=== PATIENT | female | born 1980 | race African-American/Black ===

== ENCOUNTER 2022-10-14 19:02 | Emergency (ER) | payer MEDICAID ==
[~2022-10-14] VITALS: Ht 165.1 cm; Wt 64.1 kg
[2022-10-14] MEDS ORDERED: L-GLUTAMINE PO (19:14)
[2022-10-14] MEDS ORDERED: FOLI-130 PO (19:15)
[2022-10-14 20:47] LABS: BASOPHILS % (AUTO) 0.9 % (0.0-2.0); EOSINOPHILS % (AUTO) 0.4 % (1.0-6.0); HEMATOCRIT 28.8 % (36-46); HEMOGLOBIN 9.8 g/dL (12.0-16.0); LYMPHOCYTES # (AUTO) 1.6 K/uL (1.0-4.8); LYMPHOCYTES % (AUTO) 48.5 % (22.0-44.0); MEAN CORPUSCULAR HEMOGLOBIN 33.7 pg (26.0-34.0); MEAN CORPUSCULAR HGB CONC 33.9 G/dL (31.0-37.0); MEAN CORPUSCULAR VOLUME 100 fL (80-100); MONOCYTES # (AUTO) 0.2 K/uL (0.1-1.0); MONOCYTES % (AUTO) 6.9 % (2.0-9.0); NEUTROPHILS # (AUTO) 1.5 K/uL (1.8-7.7); NEUTROPHILS % (AUTO) 43.3 % (40.0-70.0)
[2022-10-14 20:53] LABS: ANION GAP 16 mmol/L (8-16); CALCIUM, TOTAL 8.3 mg/dL (8.8-10.5); CARBON DIOXIDE 23 mmol/L (22-29); CHLORIDE 102 mmol/L (98-107); CREATININE 0.69 mg/dL (0.60-1.30); GLOMERULAR FILTR. RATE CALC > 60 mL/min (>60); GLUCOSE,RANDOM 111 mg/dL (70-110); POTASSIUM 3.2 mmol/L (3.5-5.1); SODIUM SERUM 141 mmol/L (136-145); UREA NITROGEN, BLOOD 10 mg/dL (7-18)
[2022-10-14 20:59] LABS: ALANINE AMINOTRANSFERASE 53 U/L (12-78); ALBUMIN 3.5 g/dL (3.4-5.0); ALKALINE PHOSPHATASE 173 U/L (46-116); ASPARTATE AMINOTRANSFERASE 273 U/L (15-37); BILIRUBIN,TOTAL 1.5 mg/dL (0.1-1.0); TOTAL PROTEIN, SERUM 8.1 g/dL (6.4-8.2)
[2022-10-14 21:12] LABS: PLATELET COUNT (AUTO) 95 K/uL (150-450)
[2022-10-14 21:49] LABS: COVID AG,FIA SOURCE NASAL SWAB
[2022-10-15 14:08] VITALS: BP 126/81
== END 2022-10-15 14:35 | disposition home or self-care (01) ==
LOC: EMS 19:06
DX: F69 Unspecified disorder of adult personality and behavior (principal); F10.10 Alcohol abuse, uncomplicated; R45.850 Homicidal ideations; R07.89 Other chest pain; F10.129 Alcohol abuse with intoxication, unspecified; K70.30 Alcoholic cirrhosis of liver without ascites; Z98.890 Other specified postprocedural states; Z20.822 Contact with and (suspected) exposure to COVID-19; Y90.9 Presence of alcohol in blood, level not specified
CPT/HCPCS: 99285; 87426; 80053; 84484; 84703; 85025; 36415; 93005; G0480

== ENCOUNTER 2024-09-03 15:08 | Inpatient (IN) | payer MEDICAID ==
[~2024-09-03] VITALS: Ht 165.1 cm; Wt 72.7 kg
[~2024-09-03 15:08] MED LIST: CEFI400C4 PO; FOLI-130 PO; L-GLUTAMINE PO; LACT10SO10 PO
[2024-09-03] MEDS ORDERED: SODIUM CHLORIDE 0.9% 100 ML ONE (16:47)
[2024-09-03] MEDS ORDERED: 0.9% SODIUM CHLORIDE 10 ML SYRINGE IVP ONE (16:47)
[2024-09-03] MEDS ORDERED: IOHEXOL 350 MG/ML 100 ML VIAL ONE (16:47)
[2024-09-03 16:50] LABS: ANION GAP 12 mmol/L (8-16); CALCIUM, TOTAL 7.7 mg/dL (8.8-10.5); CARBON DIOXIDE 25 mmol/L (22-29); CHLORIDE 106 mmol/L (98-107); CREATININE 0.71 mg/dL (0.60-1.30); GLOMERULAR FILTR. RATE CALC > 60 mL/min (>60); GLUCOSE,RANDOM 109 mg/dL (70-110); POTASSIUM 3.8 mmol/L (3.5-5.1); SODIUM SERUM 143 mmol/L (136-145); UREA NITROGEN, BLOOD 13 mg/dL (7-18)
[2024-09-03 16:55] LABS: ALANINE AMINOTRANSFERASE 27 U/L (12-78); ALBUMIN 2.2 g/dL (3.4-5.0); ALKALINE PHOSPHATASE 174 U/L (46-116); ASPARTATE AMINOTRANSFERASE 155 U/L (15-37); BILIRUBIN,TOTAL 1.5 mg/dL (0.1-1.0); LIPASE 187 U/L (16-77); TOTAL PROTEIN, SERUM 8.2 g/dL (6.4-8.2)
[2024-09-03 17:00] LABS: EOSINOPHILS % (AUTO) 1.5 % (1.0-6.0); HEMATOCRIT 24.7 % (36-46); LYMPHOCYTES # (AUTO) 0.9 K/uL (1.0-4.8); LYMPHOCYTES % (AUTO) 31.2 % (22.0-44.0); MEAN CORPUSCULAR HGB CONC 32.5 G/dL (31.0-37.0); MEAN CORPUSCULAR VOLUME 92 fL (80-100); MONOCYTES # (AUTO) 0.3 K/uL (0.1-1.0); MONOCYTES % (AUTO) 12.7 % (2.0-9.0); NEUTROPHILS # (AUTO) 1.4 K/uL (1.8-7.7); NEUTROPHILS % (AUTO) 52.6 % (40.0-70.0); RED BLOOD CELL COUNT(AUTO) 2.68 MIL/uL (4.00-5.20); RED CELL DISTRIBUTION WIDTH 19.3 % (11.5-14.5); WHITE BLOOD COUNT (AUTO) 2.7 K/uL (4.5-11.0)
[2024-09-03 17:06] LABS: PROTHROMBIN TIME 11.8 SEC (9.4-11.6)
[2024-09-03 17:37] LABS: PLATELET COUNT (AUTO) 75 K/uL (150-450)
[2024-09-03] MEDS: MORPHINE SULFATE 2 MG/ML SYRINGE IVP ONE (18:47)
[2024-09-03] MEDS: ONDANSETRON HCL 4 MG/2 ML VIAL IVP ONE (18:47)
[2024-09-03] MEDS ORDERED: ONDANSETRON HCL 4 MG/2 ML VIAL IVP PRN (20:00)
[2024-09-03] MEDS ORDERED: 0.9% SODIUM CHLORIDE 10 ML SYRINGE IVP PRN (20:00)
[2024-09-03] MEDS ORDERED: LORazepam 2 MG TABLET PO PRN (20:00)
[2024-09-03 20:37] LABS: ANION GAP 13 mmol/L (8-16); CALCIUM, TOTAL 7.5 mg/dL (8.8-10.5); CARBON DIOXIDE 23 mmol/L (22-29); CHLORIDE 108 mmol/L (98-107); CREATININE 0.65 mg/dL (0.60-1.30); GLOMERULAR FILTR. RATE CALC > 60 mL/min (>60); GLUCOSE,RANDOM 98 mg/dL (70-110); POTASSIUM 3.9 mmol/L (3.5-5.1); SODIUM SERUM 144 mmol/L (136-145); UREA NITROGEN, BLOOD 11 mg/dL (7-18)
[2024-09-03 20:42] LABS: ALANINE AMINOTRANSFERASE 22 U/L (12-78); ALBUMIN 1.9 g/dL (3.4-5.0); ALKALINE PHOSPHATASE 158 U/L (46-116); ASPARTATE AMINOTRANSFERASE 132 U/L (15-37); BILIRUBIN,TOTAL 1.1 mg/dL (0.1-1.0); LACTATE DEHYDROGENASE 499 U/L (81-234); TOTAL PROTEIN, SERUM 7.3 g/dL (6.4-8.2)
[2024-09-03 20:53] LABS: LACTIC ACID 2.9 mmol/L (0.4-2.0)
[2024-09-03] MEDS: DOCUSATE SODIUM 100 MG CAPSULE PO SCH (21:00)
[2024-09-03] MEDS: SODIUM CHLORIDE 0.9% 2,200 ML IV ONE (21:24)
[2024-09-03 22:25] VITALS: BP 136/88; PULSE 108; PULSE 97; RESP 18; TEMP 98.2; O2SAT 98
[2024-09-03] MEDS: 1: MAGNESIUM SULFATE 2 GM, MVI, ADULT NO.1 WITH VIT K 10 ML, THIAMINE 100 MG, FOLIC ACID IV SCH (22:32)
[2024-09-04] MEDS: PIPERACILLIN/TAZO 3.375 GM/D5W 50 ML IV SCH (00:16)
[2024-09-04] MEDS: MORPHINE SULFATE 2 MG/ML SYRINGE IVP ONE (03:00)
[2024-09-04 04:28] VITALS: BP 94/57; PULSE 97; RESP 18; TEMP 97.7; O2SAT 98
[2024-09-04 05:10] VITALS: BP 108/86; PULSE 92; RESP 18; TEMP 97.6; O2SAT 100
[2024-09-04] MEDS: KETOROLAC TROMETHAMINE 15 MG/ML VIAL IVP ONE (05:40)
[2024-09-04 07:00] LABS: BASOPHILS % (AUTO) 1.3 % (0.0-2.0); EOSINOPHILS % (AUTO) 2.5 % (1.0-6.0); HEMATOCRIT 21.8 % (36-46); HEMOGLOBIN 7.2 g/dL (12.0-16.0); LYMPHOCYTES # (AUTO) 0.5 K/uL (1.0-4.8); LYMPHOCYTES % (AUTO) 29.7 % (22.0-44.0); MEAN CORPUSCULAR HEMOGLOBIN 30.4 pg (26.0-34.0); MEAN CORPUSCULAR VOLUME 92 fL (80-100); MONOCYTES # (AUTO) 0.3 K/uL (0.1-1.0); MONOCYTES % (AUTO) 14.3 % (2.0-9.0); NEUTROPHILS % (AUTO) 52.2 % (40.0-70.0); PLATELET COUNT (AUTO) 46 K/uL (150-450); RED BLOOD CELL COUNT(AUTO) 2.37 MIL/uL (4.00-5.20); RED CELL DISTRIBUTION WIDTH 18.9 % (11.5-14.5); WHITE BLOOD COUNT (AUTO) 1.8 K/uL (4.5-11.0)
[2024-09-04] MEDS ORDERED: LORazepam 2 MG TABLET PO PRN (07:00)
[2024-09-04] MEDS: LORazepam 2 MG TABLET PO SCH (09:15)
[2024-09-04 09:28] VITALS: BP 126/85; PULSE 98; RESP 20; TEMP 98.5; O2SAT 100
[2024-09-04] MEDS ORDERED: LORazepam 2 MG/ML VIAL IVP PRN (10:45)
[2024-09-04] MEDS: LORazepam 1 MG TABLET PO PRN (19:04)
[2024-09-04] MEDS: LEVOFLOXACIN 500 MG TABLET PO SCH (19:04)
[2024-09-04 19:06] VITALS: BP 116/74; PULSE 102; RESP 16; TEMP 99.1; O2SAT 100
[2024-09-04 19:38] VITALS: BP 111/59; PULSE 98; RESP 18; TEMP 98.4; O2SAT 100
[2024-09-04] MEDS ORDERED: MAGNESIUM SULFATE 4 GM/WATER 100 ML IV PRN (21:00)
[2024-09-04] MEDS ORDERED: MAGNESIUM SULFATE 2 GM/WATER 50 ML IV PRN (21:00)
[2024-09-04] MEDS: MAGNESIUM OXIDE 400 MG TABLET PO PRN (21:05)
[2024-09-05] MEDS ORDERED: HEPARIN SODIUM,PORCINE 5,000 UNITS/ML VIAL SQ SCH
[2024-09-05 08:11] VITALS: BP 110/52; PULSE 106; RESP 18; TEMP 99.3; O2SAT 96
[2024-09-05 10:22] LABS: BASOPHILS % (AUTO) 1.2 % (0.0-2.0); EOSINOPHILS % (AUTO) 2.4 % (1.0-6.0); HEMATOCRIT 22.2 % (36-46); HEMOGLOBIN 7.4 g/dL (12.0-16.0); LYMPHOCYTES # (AUTO) 0.4 K/uL (1.0-4.8); LYMPHOCYTES % (AUTO) 24.2 % (22.0-44.0); MEAN CORPUSCULAR HEMOGLOBIN 30.3 pg (26.0-34.0); MEAN CORPUSCULAR HGB CONC 33.1 G/dL (31.0-37.0); MEAN CORPUSCULAR VOLUME 92 fL (80-100); MONOCYTES # (AUTO) 0.2 K/uL (0.1-1.0); MONOCYTES % (AUTO) 14.7 % (2.0-9.0); NEUTROPHILS # (AUTO) 0.9 K/uL (1.8-7.7); NEUTROPHILS % (AUTO) 57.5 % (40.0-70.0); RED BLOOD CELL COUNT(AUTO) 2.43 MIL/uL (4.00-5.20); WHITE BLOOD COUNT (AUTO) 1.6 K/uL (4.5-11.0)
[2024-09-05 10:46] LABS: PLATELET COUNT (AUTO) 36 K/uL (150-450)
[2024-09-06] MEDS ORDERED: LORazepam 1 MG TABLET PO PRN (07:00)
[2024-09-06] MEDS ORDERED: LORazepam 1 MG TABLET PO SCH (09:00)
[2024-09-07] MEDS ORDERED: LORazepam 1 MG TABLET PO PRN (07:00)
== END 2024-09-05 13:14 | disposition left against medical advice (07) | DRG 248 ==
LOC: EMS 15:08 → EDH 20:11 → 6S 22:12
PROVIDERS: ADMIT Internal Medicine; ATTEND Internal Medicine
PROC: 0W9G3ZZ Drainage of Peritoneal Cavity, Percutaneous Approach (ICD-10-PCS; principal; 2024-09-04)
DX: K65.2 Spontaneous bacterial peritonitis (principal); D61.818 Other pancytopenia; D68.9 Coagulation defect, unspecified; K76.6 Portal hypertension; R18.8 Other ascites; K74.60 Unspecified cirrhosis of liver; F10.20 Alcohol dependence, uncomplicated; I50.9 Heart failure, unspecified; D64.9 Anemia, unspecified; Z53.29 Procedure and treatment not carried out because of patient's decision for other reasons; Z91.199 Patient's noncompliance with other medical treatment and regimen due to unspecified reason
CPT/HCPCS: 74177; 76705; 80048; 80053; 80076; 82040; 83605; 83615; 83690; 83735; 84145; 85025; 85610; 85730; 87040; 87075; 87081; 87205; 87340; 96374; 96375; 99285; G0480; J1885; J2270; J2405; J2543; J3411; J3475; J3490; J7030; J7050

== ENCOUNTER 2025-01-27 21:22 | Emergency (ER) | payer MEDICAID ==
[~2025-01-27] VITALS: Ht 165.1 cm; Wt 80.9 kg
[~2025-01-27 21:22] MED LIST changes: -CEFI400C4 PO; -FOLI-130 PO; -L-GLUTAMINE PO; -LACT10SO10 PO; +LEVO-72 PO; +MULT-660 PO; +SERT-158 PO
[2025-01-27 21:57] VITALS: TEMP 97.8
[2025-01-27 23:22] LABS: RED BLOOD CELL COUNT(AUTO) 2.50 MIL/uL (4.00-5.20); RED CELL DISTRIBUTION WIDTH 17.6 % (11.5-14.5); WHITE BLOOD COUNT (AUTO) 2.4 K/uL (4.5-11.0)
[2025-01-27 23:30] LABS: CALCIUM, TOTAL 7.8 mg/dL (8.8-10.5); CREATININE 0.76 mg/dL (0.60-1.30); GLOMERULAR FILTR. RATE CALC > 60 mL/min (>60); GLUCOSE,RANDOM 92 mg/dL (70-110); SODIUM SERUM 147 mmol/L (136-145); UREA NITROGEN, BLOOD 11 mg/dL (7-18)
[2025-01-27 23:36] LABS: ASPARTATE AMINOTRANSFERASE 135.0 U/L (15-37); TOTAL PROTEIN, SERUM 7.4 g/dL (6.4-8.2)
[2025-01-27 23:38] LABS: ALCOHOL, BLOOD (SERUM) 387.0 mg/dL (0-10)
[2025-01-28 00:02] LABS: PLATELET COUNT (AUTO) 34 K/uL (150-450)
[2025-01-28] MEDS: ONDANSETRON HCL 4 MG/2 ML VIAL IVP ONE (01:35)
[2025-01-28] MEDS: SODIUM CHLORIDE 0.9% 1,000 ML IV ONE (01:53)
[2025-01-28 03:55] VITALS: BP 116/87; PULSE 102; RESP 16; O2SAT 98
== END 2025-01-28 04:08 | disposition home or self-care (01) ==
LOC: EMS 21:24
DX: F10.129 Alcohol abuse with intoxication, unspecified (principal); F32.A Depression, unspecified; Z79.899 Other long term (current) drug therapy; Z88.1 Allergy status to other antibiotic agents; Z98.890 Other specified postprocedural states; Y90.8 Blood alcohol level of 240 mg/100 ml or more
CPT/HCPCS: 99283; 80048; 80076; 83690; 85025; 36415; 96374; 96361; G0480; J2405; J7030

== ENCOUNTER 2025-02-11 08:29 | Emergency (ER) | payer MEDICAID ==
[~2025-02-11] VITALS: Ht 165.1 cm; Wt 62.7 kg
[~2025-02-11 08:29] MED LIST changes: +DICL100G60 TP; +FOLI-130 PO; +FURO20TA4 PO; +HYDR25TA83 PO; +LANS-78 PO; +LEVE-71 PO; -LEVO-72 PO; +MULT-1366 PO; -MULT-660 PO; +NALO4SPR22 NASAL; +ONDA4 PO; +SPIR50TA27 PO; +THIA100T80 PO
[2025-02-11 09:52] LABS: PLATELET COUNT (AUTO) 47 K/uL (150-450); RED BLOOD CELL COUNT(AUTO) 2.77 MIL/uL (4.00-5.20); RED CELL DISTRIBUTION WIDTH 17.2 % (11.5-14.5); WHITE BLOOD COUNT (AUTO) 1.6 K/uL (4.5-11.0)
[2025-02-11 09:54] LABS: CALCIUM, TOTAL 8.6 mg/dL (8.8-10.5); CREATININE 0.72 mg/dL (0.60-1.30); GLOMERULAR FILTR. RATE CALC > 60 mL/min (>60); GLUCOSE,RANDOM 113 mg/dL (70-110); UREA NITROGEN, BLOOD 8 mg/dL (7-18)
[2025-02-11 09:58] LABS: ASPARTATE AMINOTRANSFERASE 56.0 U/L (15-37); TOTAL PROTEIN, SERUM 7.4 g/dL (6.4-8.2)
[2025-02-11 09:59] LABS: SODIUM SERUM 139 mmol/L (136-145)
[2025-02-11 10:31] LABS: PATHOLOGY REVIEW, DIFF YES; PLATELET MORPHOLOGY COMMENT LARGE PLTS PRESENT
[2025-02-11 10:32] LABS: BAND NEUTROPHILS % (MANUAL) 0 % (0-5)
[2025-02-11 10:33] LABS: BASOPHILS % (MANUAL) 1 % (0-2); EOSINOPHILS % (MANUAL) 1 % (1-6); LYMPHOCYTES % (MANUAL) 37 % (22-44); MONOCYTES % (MANUAL) 10 % (2-9); SEGMENTED NEUTROPHILS % 51 % (40-70)
[2025-02-11] MEDS ORDERED: DIAZ-328 PO ×3 (11:32)
[2025-02-11] MEDS ORDERED: MELA5TAB40 PO (11:32)
[2025-02-11] MEDS ORDERED: OLAN5TAB94 PO (11:32)
[2025-02-11] MEDS ORDERED: GABA-1216 PO (11:32)
[2025-02-11] MEDS ORDERED: LEVE-71 PO (11:32)
[2025-02-11] MEDS ORDERED: FLUO-418 PO (11:32)
[2025-02-11] MEDS ORDERED: DIAZ10 PO ×2 (11:32)
[2025-02-12 02:59] LABS: COVID AG,FIA SOURCE NASAL SWAB
[2025-02-12 03:15] LABS: SARS-COV2 (COVID) ANTIGEN,FIA Negative (Negative)
[2025-02-12 06:16] LABS: APPEARANCE,URINE CLEAR (CLEAR); GLUCOSE, URINE (UA) NEGATIVE (NEGATIVE); LEUKOCYTE ESTERASE ,URINE NEGATIVE (NEGATIVE); NITRATE,URINE NEGATIVE (NEGATIVE); OCCULT BLOOD,URINE NEGATIVE (NEGATIVE); PH,URINE DRUG SCREEN 6.5 (5.0-8.0); SPECIFIC GRAVITIY, URINE 1.012 (1.003-1.030)
[2025-02-12 06:23] LABS: ALCOHOL, URINE DRUG SCREEN NEGATIVE (NEGATIVE); AMPHET/METH SCREEN,URINE NEGATIVE (NEGATIVE); BARBITURATE SCREEN, URINE NEGATIVE (NEGATIVE); CANNABINOID SCREEN,URINE NEGATIVE (NEGATIVE); COCAINE SCREEN,URINE NEGATIVE (NEGATIVE); METHADONE SCREEN, URINE NEGATIVE (NEGATIVE)
[2025-02-12 20:30] VITALS: BP 119/66; PULSE 94; RESP 20; TEMP 98.1; O2SAT 98
[2025-02-15] MEDS ORDERED: OMEP-148 PO (12:36)
[2025-02-15] MEDS ORDERED: FERR325T27 PO (12:36)
== END 2025-02-12 23:58 | disposition home or self-care (01) ==
LOC: EMS 08:34
DX: F20.9 Schizophrenia, unspecified (principal); D61.818 Other pancytopenia; F32.A Depression, unspecified; Z98.890 Other specified postprocedural states; F10.90 Alcohol use, unspecified, uncomplicated; Z88.1 Allergy status to other antibiotic agents; Z79.899 Other long term (current) drug therapy; Z20.822 Contact with and (suspected) exposure to COVID-19; Y90.9 Presence of alcohol in blood, level not specified
CPT/HCPCS: 80048; 80307; 81003; 82248; 85025; 99285

== ENCOUNTER 2025-04-24 19:18 | Emergency (ER) | payer MEDICAID ==
[~2025-04-24] VITALS: Ht 165.1 cm; Wt 65.5 kg
[~2025-04-24 19:18] MED LIST changes: -DICL100G60 TP; +FERR325T27 PO; +FLUO-418 PO; -FOLI-130 PO; -FURO20TA4 PO; +GABA-1216 PO; -HYDR25TA83 PO; -LANS-78 PO; +MELA5TAB40 PO; -MULT-1366 PO; -NALO4SPR22 NASAL; +OLAN5TAB94 PO; +OMEP-148 PO; -ONDA4 PO; -SERT-158 PO; -SPIR50TA27 PO; -THIA100T80 PO
[2025-04-24] MEDS: ACETAMINOPHEN 500 MG TABLET PO ONE (20:03)
[2025-04-24] MEDS: IBUPROFEN 400 MG TABLET PO ONE (20:03)
[2025-04-24 20:40] VITALS: BP 119/67; PULSE 90; RESP 16; TEMP 97.505240; O2SAT 97
== END 2025-04-24 20:57 | disposition home or self-care (01) ==
LOC: EMS 19:21
DX: S00.03XA Contusion of scalp, initial encounter (principal); F32.A Depression, unspecified; F10.20 Alcohol dependence, uncomplicated; Z98.890 Other specified postprocedural states; Z79.899 Other long term (current) drug therapy; Z88.1 Allergy status to other antibiotic agents; Y90.9 Presence of alcohol in blood, level not specified; W22.8XXA Striking against or struck by other objects, initial encounter; Y93.89 Activity, other specified; Y92.89 Other specified places as the place of occurrence of the external cause; Y99.8 Other external cause status
CPT/HCPCS: 99283